=== PATIENT | female | born 1980 | race Caucasian/White ===

== ENCOUNTER 2017-08-11 09:39 | Outpatient (CLI) | END 2017-08-11 09:40 | disposition home or self-care (01) | LOC: RHC-LAB 09:39 | PROVIDERS: ATTEND Nurse Practitioner Family | DX: F32.9 Major depressive disorder, single episode, unspecified (principal); F41.1 Generalized anxiety disorder; L67.8 Other hair color and hair shaft abnormalities; G43.909 Migraine, unspecified, not intractable, without status migrainosus | CPT/HCPCS: 36415; 80053; 80061; 85025 ==

== ENCOUNTER 2017-08-20 16:52 | Outpatient (CLI) | END 2017-08-20 16:53 | disposition home or self-care (01) | LOC: CAR 16:52 | PROVIDERS: ATTEND Nurse Practitioner Family | DX: E66.3 Overweight (principal) | CPT/HCPCS: 93005; 93010 ==

== ENCOUNTER 2018-01-07 11:43 | Outpatient (CLI) | END 2018-01-07 11:44 | disposition home or self-care (01) | LOC: RHC-LAB 11:43 | PROVIDERS: ATTEND Nurse Practitioner Family | DX: Z76.0 Encounter for issue of repeat prescription (principal) | CPT/HCPCS: 80306 ==

== ENCOUNTER 2018-07-17 12:14 | Outpatient (CLI) ==
--- NOTE | 2018-07-17 13:31 | DI ---
EXAM: Three views of the right ankle. History: Right ankle pain. Findings: No acute fracture or dislocation. Joint spaces are preserved. Moderate to large plantar spur. Small enthesiophyte at the insertion of the Achilles tendon. No radiopaque foreign bodies. Impression: 1. No acute osseous abnormality. 2. Calcaneal enthesiopathy
--- NOTE | 2018-07-17 14:03 | DI ---
EXAM: Three views of the right foot. History: Right foot pain and trauma. Findings: No acute fracture or dislocation. Joint spaces are preserved. Small enthesiophyte at the insertion of the Achilles tendon. Moderate to large plantar spur. No radiopaque foreign bodies. Impression: 1. No acute osseous abnormality. 2. Calcaneal enthesiopathy.
== END 2018-07-17 12:15 | disposition home or self-care (01) ==
LOC: RAD 12:14
PROVIDERS: ATTEND Physician Assistant
DX: S93.402A Sprain of unspecified ligament of left ankle, initial encounter (principal); R53.81 Other malaise; R60.9 Edema, unspecified

== ENCOUNTER 2018-10-16 08:34 | Outpatient (CLI) | payer OTHER ==
--- NOTE | 2018-10-16 10:53 | DI ---
EXAM: Single contrast upper GI and small bowel follow-through History: GERD, history of gastric sleeve. Technique: Patient was given oral barium multiple spot films of the esophagus, stomach and duodenum were obtained in various projections. Small bowel follow-through was then performed. The contrast m aterial reached the colon at 30 minutes. Findings: Cholecystectomy clips. Postsurgical changes of the stomach The course and caliber of the esophagus are within normal limits. No mucosal lesions or filling defe cts identified. No hiatal hernia. No gastroesophageal reflux was observed during the course of this examination. No gastric outlet obstruction. No polyps or ulcerations are seen within the stomach. The duodenum demonstrates normal course and caliber with no ulcerations or diverticuli. The course and caliber of the small bowel is within normal limits. No small bowel wall thickening. Terminal ileum is normal. No extravasation of contrast material. Impression: No acute or significant findings.
== END 2018-10-16 08:35 | disposition home or self-care (01) ==
LOC: RAD 08:34
PROVIDERS: ATTEND Surgery
DX: K21.0 Gastro-esophageal reflux disease with esophagitis (principal)